=== PATIENT | female | born 1960 | race Caucasian/White ===

== ENCOUNTER 2020-07-02 07:22 | Outpatient (CLI) | payer BC, SELFPAY ==
--- NOTE | ~2020-07-02 | MM_ITS ---
EXAMINATION: MM screening cheryl BI w shira HISTORY: Screening TECHNIQUE: Craniocaudal and mediolateral oblique 3-D tomosynthesis images were obtained and synthetic 2-D images were generated. CAD analysis was submitted and interpreted. COMPARISON: Comparison to multiple prior studies sequentially, with oldest reviewed study dated 03/2015. BREAST PARENCHYMAL COMPOSITION: The breasts are heterogeneously dense, which may obscure small masses . FINDINGS: There is no evidence of suspicious mass, calcification, or architectural distortion to sugg est malignancy in either breast. There has been no suspicious interval change. IMPRESSION: 1. No mammographic evidence of malignancy. 2. Recommend routine screening mammography in one year. 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
== END 2020-07-02 07:23 | disposition home or self-care (01) ==
LOC: ANHIMG 07:28
PROVIDERS: PCP Family Medicine; Visit Provider Obstetrics & Gynecology
DX: Z12.31 Encounter for screening mammogram for malignant neoplasm of breast (principal)
CPT/HCPCS: 77063; 77067

== ENCOUNTER 2021-09-29 08:33 | Outpatient (CLI) | payer OTHER, SELFPAY ==
--- NOTE | ~2021-09-29 | US_ITS ---
EXAMINATION: US right upper quadrant DATE: 09/29/2021 09:38 INDICATION: Right upper quadrant abdominal pain. TECHNIQUE: Multiple grayscale and Doppler ultrasound images of the abdomen were obtained. COMPARISON: Ultrasound 08/21/2011 FINDINGS: The visualized portions of the head and body of the pancreas are normal. The liver is hina l without focal lesion. No liver surface nodularity. There is normal flow in main portal vein. The ga llbladder is normal in size. No gallstones or gallbladder wall thickening. There was no sonographic M urphy sign. The common duct is normal and measures 6 mm. IMPRESSION: 1. Normal right upper quadrant ultrasound. 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
== END 2021-09-29 08:34 | disposition home or self-care (01) ==
LOC: ANHIMG 08:36
PROVIDERS: PCP Emergency Medicine; Visit Provider Emergency Medicine
DX: R10.11 Right upper quadrant pain (principal)
CPT/HCPCS: 76705

== ENCOUNTER 2022-01-02 08:32 | Outpatient (CLI) | payer OTHER, SELFPAY ==
--- NOTE | ~2022-01-02 | CT_ITS ---
EXAMINATION: CT abdomen pelvis wo con DATE: 01/02/2022 08:58 INDICATION: Right lower quadrant pain for 4 months TECHNIQUE: Computed tomography (CT) of the abdomen and pelvis was performed without intravenous contr ast. The dose-length product was 270.09 mGy-cm. Automated exposure control and iterative reconstructi on technique were employed. COMPARISON: Ultrasound dated 09/29/2021. FINDINGS: Lung bases are unremarkable. Heart size normal. No significant pleural or pericardial effus ion. The liver, spleen, pancreas, adrenal glands and kidneys are unremarkable. Gallbladder is present . Appendix contains appendicoliths although there is no significant wall thickening or periappendicea l inflammation. Gallbladder is present. Nonobstructive bowel gas pattern. No abnormal pelvic masses or fluid collecti ons. No significant vascular abnormality. No lymphadenopathy. Mild lumbar spondylosis. Small mixed yecenia cent/sclerotic lesion of the left ilium, nonspecific. There is a small sclerotic lesion of the left a cetabulum as well. IMPRESSION: 1. No acute abdominal abnormality. 2: Small lytic/sclerotic lesions of the left pelvis, most likely benign, although if there is a histo ry of malignancy, consider correlation with bone scan. Reviewed, dictated and finalized at location B. IMPRESSION: 1. No acute abdominal abnormality. 2: Small lytic/sclerotic lesions of the left pelvis, most likely benign, althou gh if there is a history of malignancy, consider correlation with bone scan.
== END 2022-01-02 08:33 | disposition home or self-care (01) ==
PROVIDERS: PCP Emergency Medicine
DX: R10.31 Right lower quadrant pain (principal)
CPT/HCPCS: 74176

== ENCOUNTER 2022-01-12 09:12 | Outpatient (CLI) | payer OTHER, SELFPAY ==
--- NOTE | ~2022-01-12 | MM_ITS ---
EXAMINATION: MM screening cheryl BI w shira HISTORY: Screening TECHNIQUE: Craniocaudal and mediolateral oblique 3-D tomosynthesis images were obtained and synthetic 2-D images were generated. CAD analysis was submitted and interpreted. COMPARISON: Comparison to multiple prior studies sequentially, with oldest reviewed study dated 08/13. BREAST PARENCHYMAL COMPOSITION: The breasts are heterogenously dense, which may obscure small masses FINDINGS: There is no evidence of suspicious mass, calcification, or architectural distortion to sugg est malignancy in either breast. There has been no suspicious interval change. IMPRESSION: 1. No mammographic evidence of malignancy. 2. Recommend routine screening mammography in one year. BI-RADS Category 1: Negative Reviewed, dictated and finalized at location A.
== END 2022-01-12 09:13 | disposition home or self-care (01) ==
PROVIDERS: PCP Emergency Medicine; Visit Provider Obstetrics & Gynecology
DX: Z12.31 Encounter for screening mammogram for malignant neoplasm of breast (principal)
CPT/HCPCS: 77063; 77067

== ENCOUNTER 2022-01-25 10:26 | Emergency (ER) | payer OTHER, SELFPAY ==
--- NOTE | ~2022-01-25 | XR_ITS ---
XR wrist LT min 3V 01/25/2022 11:18 Indication: Left wrist pain after fall Procedure: 4 views left wrist Comparison: /Oh 02/2009 Findings: There is a nondisplaced radial styloid fracture. There is mild polyarticular osteoarthritis . Mild soft tissue swelling adjacent to the radial styloid. Scaphoid appears to be intact. No other f racture is identified. Osteopenia. Impression: 1: Nondisplaced radial styloid fracture. Reviewed, dictated and finalized at location A. Impression: 1: Nondisplaced radial styloid fracture.
--- NOTE | ~2022-01-25 | XR_ITS ---
XR facial bones min 3V 01/25/2022 11:17 Indication: Left-sided facial pain Procedure: 5 views of the facial bones Comparison: No prior studies for comparison. Findings: No facial fracture is identified. Orbits are symmetric. Paranasal sinuses are pneumatized. Mastoids are pneumatized. No mandibular fracture is seen. Nasal bone intact. No air-fluid levels in t he sinuses. Impression: 1: No acute facial fracture. If there is continuing concern for nondisplaced fracture, correlation wi th CT recommended. Reviewed, dictated and finalized at location A. Impression: 1: No acute facial fracture. If there is continuing concern for nondisplaced fr acture, correlation with CT recommended.
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
[2022-01-25 10:37] VITALS: BP 145/74; PULSE 67; RESP 16; TEMP 36.2; O2SAT 100
== END 2022-01-25 12:14 | disposition home or self-care (01) ==
PROVIDERS: Emergency Provider Nurse Practitioner Family; PCP Emergency Medicine
DX: S52.515A Nondisplaced fracture of left radial styloid process, initial encounter for closed fracture (principal); V18.0XXA Pedal cycle driver injured in noncollision transport accident in nontraffic accident, initial encounter; S01.511A Laceration without foreign body of lip, initial encounter; E78.5 Hyperlipidemia, unspecified; Z85.9 Personal history of malignant neoplasm, unspecified
CPT/HCPCS: 12011; 29125; 70150; 73110; 99214; G0463

== ENCOUNTER 2023-04-30 01:54 | Day surgery (SDC) | payer OTHER, SELFPAY ==
[2023-04-23 10:02] VITALS: BMI 23.6
--- NOTE | 2023-04-23 10:03 | PC.NURSE ---
Report to the Outpatient Waiting Room, entrance under the green pavilion located off [facility], at time _0600_ on date _[id number]_. Planned Procedure Time: _0730_. Time changes happen often and if your time is changed the preop area will call you the afternoon before. - You and your visitor will be asked to self-screen and do not enter if you have any COVID symptoms. - A mask is optional within the hospital at this time. Patients may have clear liquids (water, carbonated beverages, clear teas, apple juice) until 3 hours prior to surgery with a maximum of 20 ounces. - No food from midnight until time of surgery Take the following medications with a SIP of water the morning of surgery: ___Levothyroxine DO NOT STOP ANY OF YOUR OTHER PRESCRIPTION MEDICATIONS PRIOR TO SURGERY ?EXCEPT THE FOLLOWING Medications to discontinue per physician None Date to take last dose Please no make-up, nail irish, hairspray, perfume, deodorant, or body powder the day of surgery. No jewelry (including any body piercings) or valuables the day of surgery, leave them at home. Please take a shower or bath the night before, or the morning of, surgery with an antibacterial soap. Wear comfortable, loose fitting clothing. - Jewelry must be removed prior to entering the operating room. Rings and piercings that are not removed may be cut off. - The hospital will not accept responsibility for valuables. - Please leave all valuables, including medications, at home the day of surgery. If you are going home after surgery, a licensed drivers' cash clerk must drive you home. - NO public transportation without another adult if you receive anesthesia. - We recommend that an adult stay with you for 24 hours following discharge. - We also recommend that you do not drive, make important decision, drink alcoholic beverages, or take any drugs that were not prescribed by your health care provider for at least 24 hours after your discharge time. Follow any additional instructions given to you from your surgeon. If you or anyone in your household have experienced Covid symptoms in the past week, please notify your surgeon or the nurse liaison at the phone number below for possible testing. Telephone instructions given to __Patient___and asked if any additional questions and then verbalized understanding. Patient advised to call surgeon office or pre surgery nurse liaison [phone] if any additional questions.
[2023-04-30 06:12] VITALS: BP 132/75; PULSE 66; RESP 16; TEMP 36.7; O2SAT 100; BMI 24.3
--- NOTE | 2023-04-30 06:41 | WPDANESEPPF ---
Anes - Initial Pre Proc Eval Procedure: Operation Date: 04/30/23 07:30 Proposed Procedures p Excisional Biopsy Left Upper Extremity Subcutaneous Mass - Deborah Rodrigues MD Date/Time: 04/30/23 06:41 Surgeon: Deborah Rodrigues MD Pre Op Diagnosis: Lt Upper Extremity Sub Q Mass Patient Data Age: 62 Gender: F Height: 1.55 m Weight: 56.8 kg Allergies Allergy/AdvReac Type Severity Reaction Status Date / Time codeine Allergy Severe Vomiting Verified 04/23/23 09:53 morphine Allergy Severe Vomiting Verified 04/23/23 09:53 Home Medications Medication Instructions Recorded Confirmed Type pantoprazole 40 mg tablet,delayed 40 mg PO BID 10/18/21 04/23/23 History release (Protonix) zolpidem 12.5 mg tablet,extended 12.5 mg PO HS 01/25/22 04/23/23 History release,multiphase (Ambien CR) fluticasone propionate 50 1 spray intranasal DAILY #16 grams 07/03/22 04/23/23 Rx mcg/actuation nasal spray,suspension (Flonase Allergy Relief) rosuvastatin 10 mg tablet See Rx Instructions .Route 10/31/22 04/23/23 Rx .COMPLEX #45 tabs levothyroxine 50 mcg tablet See Rx Instructions .Route 04/04/23 04/23/23 Rx .COMPLEX #90 tabs Patient hx anesthesia problems: none Family hx anesthesia problems: none Results Review: All pre-operative results and documents have been reviewed as part of the pre-operative evaluation. [facility] Past Medical History Medical History Cancer Closed fracture of radial styloid Dyslipidemia GERD without esophagitis History of malignant neoplasm of parotid gland History of sinus problem HLD (hyperlipidemia) IBS (irritable bowel syndrome) Lump of skin of left upper extremity SK (seborrheic keratosis) Skin neoplasm Surgical History Surgical History H/O neck surgery (~2009) History of cervical spinal surgery History of shoulder surgery (~2014) Family History Family History Father Family history of cardiovascular disease Cancer Hypertension Heart disease Mother Family history of malignant neoplasm Cancer Grandparent Cancer Diabetes mellitus Hypertension Cerebrovascular accident Grandparent Diabetes mellitus Hypertension Heart disease Other HLD (hyperlipidemia) Social History Social History Social History: Patient drinks 3-5 cups of caffeine daily. Smoking status: Never smoker Alcohol intake: never Substance use: never Lack of Transportation: No Lack of Food: Never True Current Housing: I Have Housing Concerned About Future Housing: No Difficulty Paying Gas/Electric Bills: No Difficulty Paying for Meds: No Currently Unemployed: No Education: Trade/Vocational Certificate Difficulty w/ Childcare or Family Care: No Living arrangements: with family Occupation/Education: retired Gender identity (if verbalized by the patient): Female Sexual Orientation (if Verbalized by the Patient): Straight or Heterosexual Spiritual care concerns: No Anes - Eval Final PreProcedure Day of Procedure 04/30/23 06:41 Patient weight: normal Heart: regular rate and rhythm Lungs: clear to auscultation Airway: Mallampati scale class II Neurological: alert and oriented Last oral intake: >/= 8 hours ASA classification: II Emergent: no Anesthetic plan: proceed Anesthesia type and monitoring: general GIVS and standard monitoring Results Review: All pre-operative results and documents have been reviewed as part of the pre-operative evaluation. Informed Consent: The patient's anesthetic plan and its attendant risks and benefits were discussed with the patient/family/POA. Questions were solicited and answers provided to the satisfaction of the patient/family/POA.
[2023-04-30] MEDS: LACTATED RINGERS 1,000 ML 30 ML IV CONT (06:57)
--- NOTE | 2023-04-30 07:21 | WPDHPUPDATE1 ---
History and Physical Update Update Date/Time: 04/30/23 07:21 History and Physical has been reviewed, including an updated exam of the patient. There are NO changes in the patient's condition. Risks, benefits, and alternatives have been discussed and questions answered. Patient agrees to proceed with procedure.
--- NOTE | 2023-04-30 07:22 | PM.IMHP ---
H&P: HPI History of Present Illness Date/Time: 04/30/23 07:22 Chief Complaint: L forearm mass Narrative: Ms. Bui presents to the office for evaluation of a left forearm mass.? Has been present for at least five years.? Occasional changes change in size, but no history of infection or other overlying skin changes.? Mild tenderness to deep pressure or when it's bumped. Review of Systems Review of Systems: All systems reviewed & are unremarkable except as noted in HPI and below PMFSH Past Medical History Medical History Cancer Closed fracture of radial styloid Dyslipidemia GERD without esophagitis History of malignant neoplasm of parotid gland History of sinus problem HLD (hyperlipidemia) IBS (irritable bowel syndrome) Lump of skin of left upper extremity SK (seborrheic keratosis) Skin neoplasm Surgical History Surgical History H/O neck surgery (~2009) History of cervical spinal surgery History of shoulder surgery (~2014) Family History Family History Father Family history of cardiovascular disease Cancer Hypertension Heart disease Mother Family history of malignant neoplasm Cancer Grandparent Cancer Diabetes mellitus Hypertension Cerebrovascular accident Grandparent Diabetes mellitus Hypertension Heart disease Other HLD (hyperlipidemia) Social History Social History Social History: Patient drinks 3-5 cups of caffeine daily. Smoking status: Never smoker Alcohol intake: never Substance use: never Lack of Transportation: No Lack of Food: Never True Current Housing: I Have Housing Concerned About Future Housing: No Difficulty Paying Gas/Electric Bills: No Difficulty Paying for Meds: No Currently Unemployed: No Education: Trade/Vocational Certificate Difficulty w/ Childcare or Family Care: No Living arrangements: with family Occupation/Education: retired Gender identity (if verbalized by the patient): Female Sexual Orientation (if Verbalized by the Patient): Straight or Heterosexual Spiritual care concerns: No Meds Home Medications and Allergies Home Medications Medication Instructions Recorded Confirmed Type pantoprazole 40 mg tablet,delayed 40 mg PO BID 10/18/21 04/23/23 History release (Protonix) zolpidem 12.5 mg tablet,extended 12.5 mg PO HS 01/25/22 04/23/23 History release,multiphase (Ambien CR) fluticasone propionate 50 1 spray intranasal DAILY #16 grams 07/03/22 04/23/23 Rx mcg/actuation nasal spray,suspension (Flonase Allergy Relief) rosuvastatin 10 mg tablet See Rx Instructions .Route 10/31/22 04/23/23 Rx .COMPLEX #45 tabs levothyroxine 50 mcg tablet See Rx Instructions .Route 04/04/23 04/30/23 Rx .COMPLEX #90 tabs Allergies Allergy/AdvReac Type Severity Reaction Status Date / Time codeine Allergy Severe Vomiting Verified 04/30/23 07:10 morphine Allergy Severe Vomiting Verified 04/30/23 07:10 Vital Signs Vital Signs - 24 hr 04/30/23 06:12 Temperature 36.7 C Pulse Rate 66 Respiratory Rate 16 Blood Pressure 132/75 Pulse Oximetry 100 Oxygen Delivery Room Air Exam Const: General: cooperative, comfortable and no acute distress Resp: Auscultation: clear to auscultation bilaterally Cardio: Rate: regular rate Rhythm: regular rhythm GI: Inspection: normal to inspection Extrem: Other: L forearm sq mass - c/w lipoma 3x3 cm Assessment and Plan Assessment and plan (1) Mass of forearm: Qualifiers: Laterality: left Qualified Code(s): R22.32 - Localized swelling, mass and lump, left upper limb Code(s): R22.30 - Localized swelling, mass and lump, unspecified upper limb Status: Acute Assessment and Plan: will setup for exc biopsy
[2023-04-30] MEDS: ceFAZolin 2 GM/D5W 50 ML 2 GM/50 ML BAG IVPB (07:23)
[2023-04-30] MEDS: BUPIVACAINE/EPINEPHRINE 0.5% 10 ML VIAL 50 ML INFILTRATE (07:41)
--- NOTE | 2023-04-30 07:52 | P.OP_ITS ---
Procedure Note - Detailed Date of Procedure 04/30/23 Pre-op Diagnosis left forearm subcutaneous mass Post-op Diagnosis Same Procedure Performed excisional biopsy left forearm subcutaneous measuring approximately 3 x 3 cm Surgeon Deborah Rodrigues MD Anesthesia MAC and Local Indications 62-year-old female presenting to the office with a left forearm subcutaneous mass. The patient reports the mass has been present for years and has been slowly enlarging becoming more symptomatic over that time. Findings 3x3 cm sq mass most c/w lipoma Description of Procedure The patient was then placed the supine position. After adequate induction anesthesia, the patient was prepped draped the normal sterile fashion. A time- out was then done to verify the patient's identity as well as the procedure being performed. I began localizing the area above and this in the left forearm. It was noted to measure 3 x 3 cm. I then made an incision over the mass with a 15 blade scalpel. This incision was carried down through the dermis into the subcutaneous tissue. In the subcutaneous tissue, I encountered a well- circumscribed mass most consistent with lipoma. I was able to excise this mass in full. It will now be sent to pathology for further review. I then copiously irrigated the cavity and no other pathology was noted. Hemostasis was noted within the cavity. The subcutaneous tissue was then closed with 3-0 Vicryl suture. The dermis was closed with 4-0 Monocryl subcuticular suture. Dermabond was then placed on the wound. The patient tolerated the procedure well and was alert and awake in the operating room postoperatively. She will be transferred to the recovery room in stable condition. Estimated Blood Loss 5 Drains No Packing No Pathology Yes Complications No immediate complications Condition Stable Disposition PACU [facility] Billing Surgery - Charge Forward: Surgery Billing
[2023-04-30 07:58] VITALS: BP 107/52; PULSE 80; RESP 14; O2SAT 100
[2023-04-30 08:20] VITALS: BP 98/55; PULSE 78; RESP 20
[2023-04-30 08:50] VITALS: BP 115/68; PULSE 79; RESP 20
== END 2023-04-30 09:10 | disposition home or self-care (01) ==
PROVIDERS: PCP Emergency Medicine; Visit Provider Surgery
PROC: (CPT 25071; principal; 2023-04-30 07:30)
DX: D17.22 Benign lipomatous neoplasm of skin and subcutaneous tissue of left arm (principal); E78.5 Hyperlipidemia, unspecified; K21.9 Gastro-esophageal reflux disease without esophagitis
CPT/HCPCS: 25071; 88304; J0690; J2250; J2704; J3010; J7120

== ENCOUNTER 2023-08-21 08:34 | Outpatient (CLI) | payer MEDICARE, SELFPAY ==
--- NOTE | ~2023-08-21 | MM_ITS ---
EXAMINATION: MM screening [facility] BI w shira HISTORY: Screening mammogram TECHNIQUE: Craniocaudal and mediolateral oblique 3-D tomosynthesis images were obtained and synthetic 2-D images were generated. CAD analysis was submitted and interpreted. COMPARISON: 01/12/2022, 07/02/2020, 03/18/2019 BREAST PARENCHYMAL COMPOSITION: The breasts are heterogeneously dense, which may obscure small masses . FINDINGS: No suspicious mass, calcification, or architectural distortion are identified in either radha ast to suggest malignancy. There has been no suspicious interval change. IMPRESSION: 1. No mammographic evidence of malignancy. 2. Recommend routine screening mammography in one year. BI-RADS Category 1: Negative Reviewed, dictated and finalized at location A. 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
== END 2023-08-21 08:35 | disposition home or self-care (01) ==
PROVIDERS: PCP Emergency Medicine; Visit Provider Emergency Medicine
DX: Z12.31 Encounter for screening mammogram for malignant neoplasm of breast (principal)
CPT/HCPCS: 77063; 77067

== ENCOUNTER 2024-05-06 15:20 | Emergency (ER) | payer MEDICARE, SELFPAY ==
--- NOTE | ~2024-05-06 | XR_ITS ---
EXAMINATION: XR foot RT min 3V DATE: 05/06/2024 15:41 INDICATION: Right foot injury and pain. TECHNIQUE: 4 views of right foot were obtained. COMPARISON: None. FINDINGS: There is mild valgus. No fracture. There is mild osteoarthritis of talonavicular joint and some of the interphalangeal joints. IMPRESSION: 1. Mild polyarticular osteoarthritis. 2. Mild hallux valgus. Reviewed, dictated and finalized at location A.
--- NOTE | 2024-05-06 15:21 | ED.LOWEXIN ---
HPI - Extremity Injury (Lower) General Chief Complaint: Extremity Injury, Lower Stated Complaint: RT Ankle Pain Time Seen by Provider: 05/06/24 15:21 Source: patient Mode of arrival: ambulatory Limitations: no limitations History of Present Illness HPI Narrative: Margo is a 63-year-old female patient presenting to the clinic today with complaints of right foot pain after injuring it this morning. She reports she was stepping down her 2 steps going from the house to the garage and missed the last step and inverted her right foot and felt a pop. She is having pain over the 4th and 5th metatarsals and over the proximal lateral foot. No obvious bruising or swelling noted. Related Data Home Medications Medication Instructions Recorded Confirmed pantoprazole 40 mg tablet,delayed 40 mg PO BID 10/18/21 05/06/24 release (Protonix) zolpidem 12.5 mg tablet,extended 12.5 mg PO HS 01/25/22 05/06/24 release,multiphase (Ambien CR) latanoprost 0.005 % eye drops 1 drp EACH EYE DAILY 03/26/24 05/06/24 celecoxib 200 mg capsule 200 mg PO DAILY 05/06/24 05/06/24 Allergies Allergy/AdvReac Type Severity Reaction Status Date / Time codeine AdvReac Intermediate Nausea and Verified 05/06/24 15:22 Vomiting morphine AdvReac Intermediate Nausea and Verified 05/06/24 15:22 Vomiting Review of Systems Review of Systems: Pertinent positives per HPI. Patient denies any fever, chills, rash, headache, visual changes, dizziness, cough, runny nose, sore throat, shortness of breath, chest pain, palpitations, nausea, vomiting, diarrhea, constipation, abdominal pain, or any urinary issues. [facility] Past Medical History Medical History Cancer Cerumen debris on tympanic membrane of right ear Closed fracture of radial styloid Dyslipidemia Encounter for surgical aftercare following surgery on the skin and subcutaneous tissue GERD without esophagitis History of malignant neoplasm of parotid gland History of sinus problem HLD (hyperlipidemia) IBS (irritable bowel syndrome) Lipoma of left upper extremity Lump of skin of left upper extremity Mass of forearm SK (seborrheic keratosis) Skin neoplasm Surgical History Surgical History H/O neck surgery (~2009) History of cervical spinal surgery History of shoulder surgery (~2014) Family History Family History Father Family history of cardiovascular disease Cancer Hypertension Heart disease Mother Family history of malignant neoplasm Cancer Grandparent Cancer Diabetes mellitus Hypertension Cerebrovascular accident Grandparent Diabetes mellitus Hypertension Heart disease Other HLD (hyperlipidemia) Social History Social History Social History: Patient drinks 3-5 cups of caffeine daily. Smoking status: Never smoker Alcohol intake: never Substance use: never Current Housing: Decline to Answer Concerned About Future Housing: Decline to Answer Difficulty Paying Gas/Electric Bills: Decline to Answer Difficulty Paying for Meds: Decline to Answer Currently Unemployed: Decline to Answer Education: Decline to Answer Difficulty w/ Childcare or Family Care: Decline to Answer Living arrangements: with family Occupation/Education: retired Gender identity (if verbalized by the patient): Female Sexual Orientation (if Verbalized by the Patient): Straight or Heterosexual Spiritual care concerns: No Comments At the time of my signature, I reviewed and agree with the nursing past medical, surgical, social, and family history. There is no relevant family history pertinent to the patient complaint. Exam Narrative: General: Well-developed, well nourished, in no apparent distress Head: Normocephalic, atraumatic. Cardi
[2024-05-06 15:27] VITALS: BP 151/81; PULSE 61; RESP 20; TEMP 36.5; O2SAT 99
[2024-05-06 15:50] VITALS: BP 142/80; PULSE 62
== END 2024-05-06 15:51 | disposition home or self-care (01) ==
PROVIDERS: Emergency Provider Nurse Practitioner Family; PCP Emergency Medicine
DX: S93.601A Unspecified sprain of right foot, initial encounter (principal); X50.9XXA Other and unspecified overexertion or strenuous movements or postures, initial encounter; M19.071 Primary osteoarthritis, right ankle and foot; E78.5 Hyperlipidemia, unspecified; K21.9 Gastro-esophageal reflux disease without esophagitis; Z85.858 Personal history of malignant neoplasm of other endocrine glands; Z85.828 Personal history of other malignant neoplasm of skin
CPT/HCPCS: 73630; 99213; G0463

== ENCOUNTER 2024-05-30 08:20 | Outpatient (CLI) | payer MEDICARE, SELFPAY ==
--- NOTE | 2024-05-30 08:24 | EST_ITS ---
Patient Info Name: Marija Bui Age: 63 years : 1960 Gender: Female Ht: 61 in Wt: 133 lbs BSA: 1.62 m2 HR: 73 bpm BP: 154 / 94 mmHg Exam Date: 05/30/2024 8:42 AM Exam Location: Echo Lab Patient Status: Outpatient Admit Date: 05/30/2024 Staff Ordering Physician: Basim Huggins MD Attending Provider: Basim Huggins MD Exercise Technologist: Vivian Cortez [facility] Exercise Physician: Jay Alaniz DO Exam Type: CA stress test treadmill Study Info A treadmill exercise stress test was performed. Summary 1. 1. Negative Khadar exercise stress test for ischemic ST changes by ECG criteria. 2. 2. Reduced functional capacity, achieving 7 METs of workload. 3. 3. Baseline hypertension with hypertensive response to exercise. 4. 4. Appropriate HR response to exercise. 5. 5. Appropriate HR recovery at 1 minute post exercise. 6. 6. No imaging with stress testing. 7. 7. Patient informed of the above results. Protocol: Khadar Stress ECG Details Stage: REST Duration (min): 6 min : 5 sec Speed (mph): 0.0 Grade (%): 0 HR (bpm): 74 SBP (mmHg): 154 DBP (mmHg): 94 METS: --- Stage: REST Duration (min): 8 min : 44 sec Speed (mph): 0.0 Grade (%): 0 HR (bpm): 79 SBP (mmHg): 154 DBP (mmHg): 94 METS: --- Stage: STAGE 1 Duration (min): 1 min : 0 sec Speed (mph): 1.7 Grade (%): 10 HR (bpm): 105 SBP (mmHg): 154 DBP (mmHg): 94 METS: --- Stage: STAGE 1 Duration (min): 2 min : 0 sec Speed (mph): 1.7 Grade (%): 10 HR (bpm): 126 SBP (mmHg): 154 DBP (mmHg): 94 METS: --- Stage: STAGE 1 Duration (min): 3 min : 0 sec Speed (mph): 1.7 Grade (%): 10 HR (bpm): 129 SBP (mmHg): 190 DBP (mmHg): 89 METS: --- Stage: STAGE 2 Duration (min): 1 min : 0 sec Speed (mph): 2.5 Grade (%): 12 HR (bpm): 140 SBP (mmHg): 190 DBP (mmHg): 89 METS: --- Stage: STAGE 2 Duration (min): 2 min : 0 sec Speed (mph): 2.5 Grade (%): 12 HR (bpm): 149 SBP (mmHg): 208 DBP (mmHg): 88 METS: --- Stage: STAGE 2 Duration (min): 2 min : 1 sec Speed (mph): 2.5 Grade (%): 12 HR (bpm): 149 SBP (mmHg): 208 DBP (mmHg): 88 METS: --- Stage: RECOVERY Duration (min): 0 min : 59 sec Speed (mph): 0.0 Grade (%): 0 HR (bpm): 114 SBP (mmHg): 208 DBP (mmHg): 88 METS: --- Stage: RECOVERY Duration (min): 1 min : 59 sec Speed (mph): 0.0 Grade (%): 0 HR (bpm): 85 SBP (mmHg): 208 DBP (mmHg): 88 METS: --- Stage: RECOVERY Duration (min): 2 min : 59 sec Speed (mph): 0.0 Grade (%): 0 HR (bpm): 83 SBP (mmHg): 182 DBP (mmHg): 89 METS: --- Stage: RECOVERY Duration (min): 3 min : 4 sec Speed (mph): 0.0 Grade (%): 0 HR (bpm): 81 SBP (mmHg): 182 DBP (mmHg): 89 METS: --- Rest HR: 79 bpm Peak HR: 152 bpm Rest Sys BP: 154 mmHg Peak Sys BP: 208 mmHg Max Pred HR: 155 bpm % Max Pred HR: 98 % Target HR: 132 bpm Max RPP: 31,616 bpm*mmHg Riggs Score: -4 BP Response: Patient exhibited a hypertensive response with stress Termination Reason: Reached target heart rate or workload Cardiac Symptoms: Shortness of breath Max ST Seg Deviation: -1.90 mm Total Time: 5 min : 1 sec Rest Jimenez BP: 94 mmHg Peak Jimenez BP: 88 mmHg Angina Score: None Total METS: 7.1 Resting ECG Sinus rhythm. Stress ECG Borderline ST-T wave in inferior leads. Arrhythmias None. Report Signatures
== END 2024-05-30 08:21 | disposition home or self-care (01) ==
PROVIDERS: PCP Emergency Medicine; Visit Provider Emergency Medicine
DX: R06.09 Other forms of dyspnea (principal); R07.89 Other chest pain
CPT/HCPCS: 93017

== ENCOUNTER 2024-11-27 14:05 | Outpatient (CLI) | payer MEDICARE, SELFPAY ==
--- NOTE | ~2024-11-27 | MM_ITS ---
EXAMINATION: MM screening cheryl BI w shira HISTORY: Screening TECHNIQUE: Craniocaudal and mediolateral oblique 3-D tomosynthesis images were obtained and synthetic 2-D images were generated. CAD analysis was submitted and interpreted. COMPARISON: Comparison to multiple prior studies sequentially, with oldest reviewed study dated 11/08. BREAST PARENCHYMAL COMPOSITION: Not dense: There are scattered areas of fibroglandular density. FINDINGS: There is no evidence of suspicious mass, calcification, or architectural distortion to sugg est malignancy in either breast. There has been no suspicious interval change. IMPRESSION: 1. No mammographic evidence of malignancy. 2. Recommend routine screening mammography in one year. BI-RADS Category 1: Negative Reviewed, dictated and finalized at location A.
--- OUTSIDE RECORDS SUMMARY | 2024-11-27 14:53 | XMS_ITS | Clinical Summary ---
Author Organization [facility] Address [address] [place] [address] Care Team Providers Care Hand Button Splitter Name Role Phone Lennox Selby MD Primary Care Provider [phone] Source Comments [facility],non-owned Affiliates and Associated Physician Practices is amultiple site organization consisting of ambulatory clinics and hospital sitesin [place], [place], [place] and [place]. This disclosure is being madepursuant to the Care Everywhere program and may not contain all information available regarding this patient. Last updated 18.[facility] Allergies Active Allergy Reactions Criticality Noted Date Comments Codeine Nausea and/or Vomiting 09/30/2014 Meperidine Nausea and/or Vomiting 10/02/2014 Morphine Nausea and/or Vomiting 09/30/2014 Oxycodone-Acetaminophen Nausea and/or Vomiting 10/02/2014 Medications * Be aware that medications may not be up to date on this document. Alwaysverify current medications with the patient. fexofenadine (YAZAN) 60 MG tablet Take 60 mg by mouth as needed. Active lovastatin (MEVACOR) 20 MG tablet Take 20 mg by mouth at bedtime. Active ibuprofen (ADVIL) 200 MG capsule Take 200 mg by mouth 4 times daily as needed for Pain. Active acetaminophen (TYLENOL) 325 MG tablet Take 325 mg by mouth every 4 hours as needed for Fever or Pain. Maximum allowable Acetaminophen amount = 4 Grams (4000 mg) / 24 hours. Active zolpidem (AMBIEN) 10 MG tablet Take 10 mg by mouth nightly as needed for Insomnia. Active ondansetron (ZOFRAN) 4 MG tablet Take 1 Tab by mouth every 6 hours as needed for Nausea/Vomiting. 20 Tab 2 5 Active hydrocodone-ib uprofen (VICOPROFEN) 7.5-200 MG TABS Take 1 Tab by mouth every 4 hours as needed. 50 Tab 0 5 Active Active Problems Problem Noted Date Diagnosed Date Neck pain 09/19/2010 Social History Tobacco Use Types Packs/Day Years Used Date Smoking Tobacco: Never Smokeless Tobacco: Never Alcohol Use Standard Drinks/Week Comments No 0 (1 standard drink = 0.6 oz pur e alcohol) Comments No Sex and Gender Information Value Date Recorded Sex Assigned at Not on file Legal Sex Female 9:17 AM EXECUTIVE PERSONAL ASSISTANT Gender Identity Not on file Sexual Orientation Not on file Last Filed Vital Signs Vital Sign Reading Time Taken Comments Blood Pressure 113/72 10/02/2014 12:20 PM EXECUTIVE PERSONAL ASSISTANT Pulse 66 10/02/2014 12:20 PM EXECUTIVE PERSONAL ASSISTANT Temperature 36.1 C (96.9 F) 10/02/2014 11:56 AM EXECUTIVE PERSONAL ASSISTANT Respiratory Rate 16 10/02/2014 12:20 PM EXECUTIVE PERSONAL ASSISTANT Oxygen Saturation 99% 10/02/2014 12:20 PM EXECUTIVE PERSONAL ASSISTANT Inhaled Oxygen Concentration - - Weight 57.2 kg (126 lb) 10/02/2014 7:58 AM EXECUTIVE PERSONAL ASSISTANT Height 154.9 cm (5' 1 ) 10/02/2014 7:58 AM EXECUTIVE PERSONAL ASSISTANT Body Mass Index 23.81 10/02/2014 7:58 AM EXECUTIVE PERSONAL ASSISTANT Plan of Treatment Health Maintenance Due Date Last Done Comments BONE DENSITY TESTING 1960 COLOGUARD (AGES 45-75) - COL ON CA SCREENING 1960 COLON MONITORING 1960 COLONOSCOPY - COLON CA SCREENING 1960 CT COLONOGRAPHY - COLON CA SCREENING 1960 Colorectal Cancer Screening 1960 FIT - COLON CA SCREENING 1960 FLEX SIG - COLON CA SCREENING 1960 MAMMOGRAM 1960 HEPATITIS C SCREENING 06/25/1976 DTAP/TDAP/TD VACCINES (1 - Tdap) 1977 PNEUMOCOCCAL VACCINE 50+ (1 of 1 - PCV) 2008 ZOSTER VACCINE (1 of 2) 2008 COVID-19 VACCINE ( - 2023-2 5 season) 2024 DEPRESSION SCREENING 07/30/2024 INFLUENZA VACCINE (Season Ended) 2025 Respiratory Syncytial Virus (RSV) Vaccine Pt: or over 60 yrs (1 - 1-dose 75+ series) 2033 HEPATITIS B VACCINE Aged Out No longe r eligible based on patient's age to complete this topic HIB VACCINE Aged Out No longer eligi ble based on patient's age to complete this topic HPV VACCINE Aged Out No longer eligi ble based on patient's age to complete this topic MENINGOCOCCAL (Group B) VACC INE SHARED DECISION-MAKING Aged Out No longer eligibl e based on patient's age to complete this topic MENINGOCOCCAL GROUPS A/C/Y/W VACCINE Aged Out No longer eligible b ased on patient's age to complete this topic Medical Devices Implanted Type Area Barrel Lathe Operator Outside Device Identifier Shelf Expiration Date Model / Serial / Lot Anch Sut Swvl Radha Tenod [employer] 7 X 19.1 Implanted:Qty: 1 on 10/02/2014 by Vinicius Braga MD at [facility] Left: Shoulder [employer] 06/29/2016 [id number] / / [id number] Insurance [facility] AET[employer] Care Teams Hand Button Splitter Relationship Specialty Start Date End Date Lennox Selby MD [address] [place] [address] PCP - General Family Medicine 09/30/14
--- OUTSIDE RECORDS SUMMARY | 2024-11-27 14:53 | XMS_ITS ---
Author Organization [facility] Address [address] [place], [place] [id number] Care Team Providers Care Variety Performer Name Role Phone PanfiloBasim caban Primary Care Provider UnavailDESMOND Dupree Unavailable [phone] Allergies No Known Allergies REASON FOR VISIT The patient does not have pain when the foot is immobilized, but she can not be in a CAM boot for long periods of time because it makes one leg longer than the other. The ankle brace helps, but she needs more support Medications Medication SIG (Take, Route, Frequency, Duration) Notes Start Date End Date Status Crestor 5 MG 1 tablet Orally Once a day Active methylPREDNISolone 4 MG as directed Orally one pack 024 Active Ambien Active Pantoprazole Sodium Active Levothyroxine Sodium Active Latanoprost Active Vital Signs Weight 138 lbs 11/17/2024 Weight-kg 62.6 kg 11/17/2024 Encounters Encounter Location Date Provider Diagnosis [facility] [address] [place], [place] [id number] 11/17/2024 DESMOND CUNNINGHAM Sprain of other ligament of right ankle, subsequent encounter S93.491D ; Posterior tibial tendinitis of right lower extremity M76.821 ; Other enthesopathy of right foot and ankle M77.51 ; Peroneal tendinitis, right leg M76.71 and Pain in right foot M79.671 Assessments Encounter Date Diagnosis (ICD Code) Assessment Notes Treatment Notes Treatment Clinical Notes Section Notes 11/17/2024 Sprain of other ligament of right ankle, subsequent encounter (ICD-10 - S93.491D) Order: Iliana ankle brace 11/17/2024 Posterior tibial tendinitis of right lower extremity (ICD-10 - M76.821) 11/17/2024 Other enthesopathy of right foot and ankle (ICD-10 - M77.51) Capsulitis / Bursitis: I discussed anti-inflammatory treatment options and various means of immobilization with the patient. I educated the patient on icing and stretching, supportive shoegear, and the use of orthotic devices and bracing. 11/17/2024 Peroneal tendinitis, right leg (ICD-10 - M76.71) Peroneal Tendonitis: I discussed anti-inflammatory treatment options and various means of immobilization with the patient. I educated the patient on icing and stretching, supportive shoegear, and the use of orthotic devices and bracing. 11/17/2024 Pain in right foot (ICD-10 - M79.671) Plan Of Treatment Treatment Notes Assessment Notes Sprain of other ligament of right ankle, subsequent encounter Order: Iliana ankle brace Other enthesopathy of right foot and ank le Capsulitis / Bursitis: I discussed anti-inflammatory treatment options and various means of immobilization with the patient. I educated the patient on icing and stretching, supportive shoegear, and the use of orthotic devices and bracing. Peroneal tendinitis, right leg Peroneal Tendonitis: I discussed anti-inflammatory treatment options and various means of immobilization with the patient. I educated the patient on icing and stretching, supportive shoegear, and the use of orthotic devices and bracing. Next Appt Details Follow Up: prn, Reason: Hermelinda ent will report back on how the Iliana brace is helping after she has worn it a few weeks Progress Notes * Marija CLEMENTS LDOB: [birth year] (64 yo F)Acc No.[id number]:11/17/2024 Patient: Marija BOB Provider: Jessica Cunningham DPM :1960 A ge:64 Y S ex:Female Date:11/17/2024 Address:[address] [place] [address], [address] [place], [place] [id number] Pcp:Basim Huggins Subjective: * Chief Complaints: * 1 . The patient does not have pain when the foot is immobilized, but she can not be in a CAM boot for long periods of time because it makes one leg longer than the other. The ankle brace helps, but she needs more support. * HPI: H PI: Follow Up Visit P celeste presents for follow-up visit for injection in the right ankle. Patient states injection helped her pain for about two weeks, and then pain returned. Patient states some days are better than others. Patient states that she will wear an ankle brace when pain is bad. MA LB. * ROS: G eneral / Constitutional: Patient denies c hills, fever, weakness, night sweats. M usculoskeletal: Patient denies c hildhood foot problems, weakness. P atlorne complains of h eel pain, arch pain, orthotic use. P eripheral Vascular: Patient denies u lceration of feet, cold extremities. ? S kin: Patient denies u lcerations, discoloration. ? N eurologic: Patient denies b alance difficulty, confusion, difficulty speaking, dizziness. * Medical History: T hyroid Disease, ACID REFLUX, GERD, Leg/Feet cramps. * Family History: F ather: hypertension, skin cancer. M other: Cancer. * Medications: T aking Latanoprost , Taking Levothyroxine Sodium , Taking Ambien , Taking Pantoprazole Sodium , Taking Crestor 5 MG Tablet 1 tablet Orally Once a day , Taking methylPREDNISolone 4 MG Tablet Therapy Pack as directed Orally , Notes to Pharmacist: one pack, Medication List reviewed and reconciled with the patient * Allergies: N .K.D.A. Objective: * Vitals: S hoe Size: 6, Wt:138lbs, Wt-k.6 kg. * Examination: C onstitutional: Constitutional T he patient is awake, alert, well developed, well groomed and well nourished. D ermatologic: Skin findings: S kin is warm, dry, supple with no breaks in the skin. V ascular: Dorsalis pedis pulse: 2 /4, bilateral. Posterior tibial pulse: 2 /4, bilateral. Capillary refill: l ess than 3 seconds. Edema: N o edema, bilateral. N eurologic: Gross sensation G ross sensation is intact to light touch.? M usculoskeletal: Muscle Strength M uscle strength is 5/5 in regards to dorsiflexion, plantarflexion, inversion, and eversion in bilateral lower extremities. Pain on palpation l ateral portal of the right sinus tarsi and with ROM of the subtalar joint., peroneal tendons of the right foot.. Ankle Ligaments T here is minimal pain to the a nterior talofibular ligament c alcaneofibular ligament. Assessment: * Assessment: 1. S prain of other ligament of right ankle, subsequent encounter - S93.491D (Primary) ? 2 . P osterior tibial tendinitis of right lower extremity - M76.821 3 .?Other enthesopathy of right foot and ankle - M77.51 4 . P eroneal tendinitis, right leg - M76.71 5 . P ain in right foot - M79.671 Plan: * Treatment: 2. O ther enthesopathy of right foot and ankle Notes: Capsulitis / Bursitis: I discussed anti-inflammatory treatment options and various means of immobilization with the patient. I educated the patient on icing and stretching, supportive shoegear, and the use of orthotic devices and bracing. 3. P eroneal tendinitis, right leg Notes: Peroneal Tendonitis: I discussed anti-inflammatory treatment options and various means of immobilization with the patient. I educated the patient on icing and stretching, supportive shoegear, and the use of orthotic devices and bracing. * Immunizations: Immunization record has been reviewed and updated. * Follow Up: p rn (Reason: Patient will report back on how the Iliana brace is helping after she has worn it a few weeks) * Billing Information: * Visit Code: 28185 Office Visit, Est Pt., Level 3. * Procedure Codes: * Electronic signature of DESMOND CUNNINGHAM DPM on 11/27/2024 at 02:53 PM CDT Sign off status: Pending * Provider: Jessica Cunningham DPM Date: 0 11/17/2024 Generated for Gayle carlson/Pegyg/Dawson on: 0 11/27/2024 02:53 PM CDT History and Physical Notes * HPI (History of Present Illness) Category Sub-Category Detail Notes Category Not es HPI Follow Up Visit Patient presents for follow-up visit for injection in the right ankle. Patient states injection helped her pain for about two weeks, and then pain returned. Patient states some days are better than others. Patient states that she will wear an ankle brace when pain is bad. ERLIN LB Examination Category Sub-Category Detail Notes Category Not es Dermatologic Skin findings: Skin is warm, dr y, supple with no breaks in the skin Neurologic Gross sensation Gross sensation is intact to light touch Vascular Dorsalis pedis pulse: 2/4, bilateral Edema: No edema, bilateral Capillary refill: less than 3 seconds Posterior tibial pulse: 2/4, bilateral Musculoskeletal Muscle Strength Muscle strength is 5/5 in regards to dorsiflexion, plantarflexion, inversion, and eversion in bilateral lower extremities Pain on palpation lateral portal of th e right sinus tarsi and with ROM of the subtalar joint., peroneal tendons of the right foot. Ankle Ligaments There is minimal velma n to the anterior talofibular ligament calcaneofibular ligament Constitutional Constitutional The patient is a wake, alert, well developed, well groomed and well nourished
--- OUTSIDE RECORDS SUMMARY | 2024-11-27 14:54 | XMS_ITS | Patient Health Record ---
Author Organization [facility] Address [address] [place], [place] [id number] Care Team Providers Care Wood Buffer Name Role Phone Basim Huggins Primary Care Provider UnavailDESMOND Dupree Unavailable [phone] Allergies No Known Allergies Reason For Referral No Information Medications Medication SIG (Take, Route, Frequency, Duration) Notes Start Date End Date Status Crestor 5 MG 1 tablet Orally Once a day Active methylPREDNISolone 4 MG as directed Orally one pack 024 Active Ambien Active Pantoprazole Sodium Active Latanoprost Active Levothyroxine Sodium Active Vital Signs Weight-kg 62.6 kg 11/17/2024 Weight 138 lbs 11/17/2024 Encounters Encounter Location Date Provider Diagnosis [facility] [place] Dasia [place], [place] [id number] 03/24/2024 DESMOND SNVALENTIN Tarsal tunnel syndrome, right lower limb G57.51 ; Posterior tibial tendinitis, right leg M76.821 ; Plantar fascial fibromatosis M72.2 and Pain in right foot M79.671 [facility] [place] [id number] 04/28/2024 DESMOND SNVALENTIN Tarsal tunnel syndrome, right lower limb G57.51 ; Posterior tibial tendinitis, right leg M76.821 ; Pain in right foot M79.671 and Plantar fascial fibromatosis M72.2 [facility] [place] [id number] 06/02/2024 DESMOND SNOOK Tarsal tunnel syndrome, right lower limb G57.51 ; Posterior tibial tendinitis, right leg M76.821 ; Pain in right foot M79.671 ; Plantar fascial fibromatosis M72.2 and Sprain of other ligament of right ankle, initial encounter S93.491A [facility] [place] [address] [address] [place] [id number] 07/14/2024 DESMOND SNOOK Sprain of other ligament of right ankle, subsequent encounter S93.491D ; Posterior tibial tendinitis, right leg M76.821 ; Peroneal tendinitis, right leg M76.71 and Achilles tendinitis, right leg M76.61 [facility] [place] [address] [address] [place] [id number] 11/17/2024 DESMOND SNOOK Sprain of other ligament of right ankle, subsequent encounter S93.491D ; Posterior tibial tendinitis of right lower extremity M76.821 ; Other enthesopathy of right foot and ankle M77.51 ; Peroneal tendinitis, right leg M76.71 and Pain in right foot M79.671 [facility] [place] [address] [address] [place] [id number] 03/03/2024 DESMOND SNOOK Posterior tibial tendinitis, right leg M76.821 ; Plantar fascial fibromatosis M72.2 and Pain in right foot M79.671 [facility] [place] [address] [address] [place] [id number] 04/07/2024 DESMOND SNOOK Tarsal tunnel syndrome, right lower limb G57.51 ; Posterior tibial tendinitis, right leg M76.821 and Pain in right foot M79.671 [facility] [place] [address] [address] [place] [id number] 08/11/2024 DESMOND SNOOK Posterior tibial tendinitis, right leg M76.821 ; Sprain of other ligament of right ankle, subsequent encounter S93.491D ; Peroneal tendinitis, right leg M76.71 and Achilles tendinitis, right leg M76.61 [facility] [place] [facility] JASMINE [place], [place] [id number] 09/15/2024 DESMONDKENZIE CUNNINGHAM Sprain of other ligament of right ankle, subsequent encounter S93.491D ; Other enthesopathy of right foot and ankle M77.51 ; Peroneal tendinitis, right leg M76.71 and Pain in right foot M79.671 [facility] [address] [facility] [address] [place], [place] [id number] 06/03/2024 DESMOND CUNNINGHAM Assessments Encounter Date Diagnosis (ICD Code) Assessment Notes Treatment Notes Treatment Clinical Notes Section Notes 03/03/2024 Plantar fascial fibromatosis (ICD-10 - M72.2) Plantar Fascitis: I discussed anti-inflammatory treatment options and various means of pronation control with the patient. I educated the patient on icing and stretching, supportive shoegear, and the use of orthotic devices. Kenalog Injection: Following skin prep, a total of 3 ccs of a 1-1-1 mix of 0.5% marcaine plain, 1% lidocaine plain, and Kenalog was injected to the right heel 03/03/2024 Posterior tibial tendinitis, right leg (ICD-10 - M76.821) Posterior Tibialis Tendon Dysfunction: I discussed anti-inflammatory treatment options and various means of immobilization with the patient. I educated the patient on icing and stretching, supportive shoegear, and the use of orthotic devices and bracing. Orthotic Continue: Advised patient to continue to wear orthotic devices. 03/24/2024 Tarsal tunnel syndrome, right lower limb (ICD-10 - G57.51) Tarsal Tunnel Syndrome: I discussed anti-inflammatory treatment options and various means of immobilization with the patient. I educated the patient on icing and stretching, supportive shoegear, and the use of orthotic devices and bracing. 03/24/2024 Posterior tibial tendinitis, right leg (ICD-10 - M76.821) Posterior Tibialis Tendon Dysfunction: I discussed anti-inflammatory treatment options and various means of immobilization with the patient. I educated the patient on icing and stretching, supportive shoegear, and the use of orthotic devices and bracing. 04/07/2024 Tarsal tunnel syndrome, right lower limb (ICD-10 - G57.51) Tarsal Tunnel Syndrome: I discussed anti-inflammatory treatment options and various means of immobilization with the patient. I educated the patient on icing and stretching, supportive shoegear, and the use of orthotic devices and bracing. Kenalog Injection: Following skin prep, a total of 3 ccs of a 1-1-1 mix of 0.5% marcaine plain, 1% lidocaine plain, and Kenalog was injected to the right tarsal tunnel 04/07/2024 Posterior tibial tendinitis, right leg (ICD-10 - M76.821) Posterior Tibialis Tendon Dysfunction: I discussed anti-inflammatory treatment options and various means of immobilization with the patient. I educated the patient on icing and stretching, supportive shoegear, and the use of orthotic devices and bracing. Continue supportive shoes and arch support 04/28/2024 Tarsal tunnel syndrome, right lower limb (ICD-10 - G57.51) Tarsal Tunnel Syndrome: I discussed anti-inflammatory treatment options and various means of immobilization with the patient. I educated the patient on icing and stretching, supportive shoegear, and the use of orthotic devices and bracing. 04/28/2024 Posterior tibial tendinitis, right leg (ICD-10 - M76.821) Posterior Tibialis Tendon Dysfunction: I discussed anti-inflammatory treatment options and various means of immobilization with the patient. I educated the patient on icing and stretching, supportive shoegear, and the use of orthotic devices and bracing. Continue supportive shoes and arch support 06/02/2024 Tarsal tunnel syndrome, right lower limb (ICD-10 - G57.51) Tarsal Tunnel Syndrome: I discussed anti-inflammatory treatment options and various means of immobilization with the patient. I educated the patient on icing and stretching, supportive shoegear, and the use of orthotic devices and bracing. 06/02/2024 Posterior tibial tendinitis, right leg (ICD-10 - M76.821) Posterior Tibialis Tendon Dysfunction: I discussed anti-inflammatory treatment options and various means of immobilization with the patient. I educated the patient on icing and stretching, supportive shoegear, and the use of orthotic devices and bracing. Continue supportive shoes and arch support 07/14/2024 Posterior tibial tendinitis, right leg (ICD-10 - M76.821) Posterior Tibialis Tendon Dysfunction: I discussed anti-inflammatory treatment options and various means of immobilization with the patient. I educated the patient on icing and stretching, supportive shoegear, and the use of orthotic devices and bracing. 07/14/2024 Sprain of other ligament of right ankle, subsequent encounter (ICD-10 - S93.491D) Ankle Sprain: Discussed the treatment course for ankle sprain. Explained that ankle injuries may take a total of 6-12 weeks for recovery based on the severity of the sprain. Stressed the importance of rest, activity modification, and bracing. TriLock Ankle Brace: A Trilok ankle brace was fitted and dispensed. The patient was instructed in its use. 08/11/2024 Posterior tibial tendinitis, right leg (ICD-10 - M76.821) Posterior Tibialis Tendon Dysfunction: I discussed anti-inflammatory treatment options and various means of immobilization with the patient. I educated the patient on icing and stretching, supportive shoegear, and the use of orthotic devices and bracing. 08/11/2024 Sprain of other ligament of right ankle, subsequent encounter (ICD-10 - S93.491D) Ankle Sprain: Discussed the treatment course for ankle sprain. Explained that ankle injuries may take a total of 6-12 weeks for recovery based on the severity of the sprain. Stressed the importance of rest, activity modification, and bracing. Patient will wear just the gaunlet of the brace. Patient will begin at-home ROM exercises. 09/15/2024 Sprain of other ligament of right ankle, subsequent encounter (ICD-10 - S93.491D) Ankle Sprain: Discussed the treatment course for ankle sprain. Explained that ankle injuries may take a total of 6-12 weeks for recovery based on the severity of the sprain. Stressed the importance of rest, activity modification, and bracing. Patient will wear just the gaunlet of the brace. Patient will begin at-home ROM exercises. 09/15/2024 Other enthesopathy of right foot and ankle (ICD-10 - M77.51) Capsulitis / Bursitis: I discussed anti-inflammatory treatment options and various means of immobilization with the patient. I educated the patient on icing and stretching, supportive shoegear, and the use of orthotic devices and bracing. Sinus Tarsi Syndrome: I discussed anti-inflammatory treatment options and various means of immobilization with the patient. I educated the patient on icing and stretching, supportive shoegear, and the use of orthotic devices and bracing. Kenalog Injection: Following skin prep, a total of 3 ccs of a 1-1-1 mix of 0.5% marcaine plain, 1% lidocaine plain, and Kenalog was injected to the right sinus tarsi joint 11/17/2024 Sprain of other ligament of right ankle, subsequent encounter (ICD-10 - S93.491D) Order: [place] ankle brace 11/17/2024 Posterior tibial tendinitis of right lower extremity (ICD-10 - M76.821) 08/11/2024 Peroneal tendinitis, right leg (ICD-10 - M76.71) Peroneal Tendonitis: I discussed anti-inflammatory treatment options and various means of immobilization with the patient. I educated the patient on icing and stretching, supportive shoegear, and the use of orthotic devices and bracing. Voltaren Gel: Recommend that the patient obtain over the counter topical Voltaren Gel 1%. I educated the patient on its use. 11/17/2024 Other enthesopathy of right foot and ankle (ICD-10 - M77.51) Capsulitis / Bursitis: I discussed anti-inflammatory treatment options and various means of immobilization with the patient. I educated the patient on icing and stretching, supportive shoegear, and the use of orthotic devices and bracing. 09/15/2024 Peroneal tendinitis, right leg (ICD-10 - M76.71) Peroneal Tendonitis: I discussed anti-inflammatory treatment options and various means of immobilization with the patient. I educated the patient on icing and stretching, supportive shoegear, and the use of orthotic devices and bracing. Voltaren Gel: Recommend that the patient obtain over the counter topical Voltaren Gel 1%. I educated the patient on its use. 07/14/2024 Peroneal tendinitis, right leg (ICD-10 - M76.71) Peroneal Tendonitis: I discussed anti-inflammatory treatment options and various means of immobilization with the patient. I educated the patient on icing and stretching, supportive shoegear, and the use of orthotic devices and bracing. 06/02/2024 Pain in right foot (ICD-10 - M79.671) 04/28/2024 Pain in right foot (ICD-10 - M79.671) 04/07/2024 Pain in right foot (ICD-10 - M79.671) 03/24/2024 Plantar fascial fibromatosis (ICD-10 - M72.2) Plantar Fascitis: I discussed anti-inflammatory treatment options and various means of pronation control with the patient. I educated the patient on icing and stretching, supportive shoegear, and the use of orthotic devices. Continue supportive shoes. Continue orthotics 03/03/2024 Pain in right foot (ICD-10 - M79.671) 03/24/2024 Pain in right foot (ICD-10 - M79.671) 04/28/2024 Plantar fascial fibromatosis (ICD-10 - M72.2) Plantar Fascitis: I discussed anti-inflammatory treatment options and various means of pronation control with the patient. I educated the patient on icing and stretching, supportive shoegear, and the use of orthotic devices. 06/02/2024 Plantar fascial fibromatosis (ICD-10 - M72.2) Plantar Fascitis: I discussed anti-inflammatory treatment options and various means of pronation control with the patient. I educated the patient on icing and stretching, supportive shoegear, and the use of orthotic devices. 07/14/2024 Achilles tendinitis, right leg (ICD-10 - M76.61) ACHILLES TENDONITIS: I discussed anti-inflammatory treatment options and various means of immobilization with the patient. I educated the patient on icing and stretching, supportive shoegear, and the use of orthotic devices, padding, and bracing. 08/11/2024 Achilles tendinitis, right leg (ICD-10 - M76.61) ACHILLES TENDONITIS: I discussed anti-inflammatory treatment options and various means of immobilization with the patient. I educated the patient on icing and stretching, supportive shoegear, and the use of orthotic devices, padding, and bracing. 09/15/2024 Pain in right foot (ICD-10 - M79.671) 11/17/2024 Peroneal tendinitis, right leg (ICD-10 - M76.71) Peroneal Tendonitis: I discussed anti-inflammatory treatment options and various means of immobilization with the patient. I educated the patient on icing and stretching, supportive shoegear, and the use of orthotic devices and bracing. 11/17/2024 Pain in right foot (ICD-10 - M79.671) 06/02/2024 Sprain of other ligament of right ankle, initial encounter (ICD-10 - S93.491A) Ankle Sprain: Discussed the treatment course for ankle sprain. Explained that ankle injuries may take a total of 6-12 weeks for recovery based on the severity of the sprain. Stressed the importance of rest, activity modification, and bracing. 09/15/2024 Other Plan Of Treatment No Information Insurance Providers Payer Name Payer Address Payer Phone Subscriber Number Group Number Insured Name Patient Relationship to Insured Coverage Start Date Coverage End Date [facility] [address] [address] [place] [id number] Marija Clements Self - patient is the insured Medical (General) History Medical History History ICD Code Thyroid Disease ACID REFLUX GERD Leg/Feet cramps
--- OUTSIDE RECORDS SUMMARY | 2024-11-27 14:54 | XMS_ITS ---
Author Organization [facility] Address [address] [place], [place] [id number] Care Team Providers Care Cert Pharmacy Tech Name Role Phone PanfiloBasim caban Primary Care Provider DESMOND Moody Unavailable [phone] Allergies No Known Allergies REASON FOR VISIT The patient reports that the right ankle continues to slowly improve. She is wearing the TriLock and is now on celebrex daily for her other OA Medications Medication SIG (Take, Route, Frequency, Duration) Notes Start Date End Date Status Latanoprost Active Levothyroxine Sodium Active Ambien Active Pantoprazole Sodium Active Crestor 5 MG 1 tablet Orally Once a day Active methylPREDNISolone 4 MG as directed Orally one pack 024 Active Encounters Encounter Location Date Provider Diagnosis [facility] [place] [address] [place], [place] [id number] 08/11/2024 DESMOND CUNNINGHAM Posterior tibial tendinitis, right leg M76.821 ; Sprain of other ligament of right ankle, subsequent encounter S93.491D ; Peroneal tendinitis, right leg M76.71 and Achilles tendinitis, right leg M76.61 Assessments Encounter Date Diagnosis (ICD Code) Assessment Notes Treatment Notes Treatment Clinical Notes Section Notes 08/11/2024 Posterior tibial tendinitis, right leg (ICD-10 [...] brace. Patient will begin at-home ROM exercises. 08/11/2024 Peroneal tendinitis, right leg (ICD-10 - M76.71) Peroneal Tendonitis: I discussed anti-inflammatory treatment options and various means of immobilization with the patient. I educated the patient on icing and stretching, supportive shoegear, and the use of orthotic devices and bracing. Voltaren Gel: Recommend that the patient obtain over the counter topical Voltaren Gel 1%. I educated the patient on its use. 08/11/2024 Achilles tendinitis, right leg (ICD-10 - M76.61) ACHILLES TENDONITIS: I discussed anti-inflammatory treatment options and various means of immobilization with the patient. I educated the patient on icing and stretching, supportive shoegear, and the use of orthotic devices, padding, and bracing. Plan Of Treatment Treatment Notes Assessment Notes Posterior tibial tendinitis, right leg Posterior Tibialis Tendon Dysfunction: I discussed anti-inflammatory treatment options and various means of immobilization with the patient. I educated the patient on icing and stretching, supportive shoegear, and the use of orthotic devices and bracing. Sprain of other ligament of right ankle, subsequent encounter Ankle Sprain: Discussed the treatment course for ankle sprain. Explained that ankle injuries may take a total of 6-12 weeks for recovery based on the severity of the sprain. Stressed the importance of rest, activity modification, and bracing. Patient will wear just the gaunlet of the brace. Patient will begin at-home ROM exercises. Peroneal tendinitis, right leg Peroneal Tendonitis: I discussed anti-inflammatory treatment options and various means of immobilization with the patient. I educated the patient on icing and stretching, supportive shoegear, and the use of orthotic devices and bracing. Voltaren Gel: Recommend that the patient obtain over the counter topical Voltaren Gel 1%. I educated the patient on its use. Achilles tendinitis, right leg ACHILLES TENDONITIS: I discussed anti-inflammatory treatment options and various means of immobilization with the patient. I educated the patient on icing and stretching, supportive shoegear, and the use of orthotic devices, padding, and bracing. Next Appt Details Follow Up: 4 Weeks, Reason: See how ROM exercises and Voltaren gel helped. Anticipate resolution Progress Notes * Marija CLEMENTS LDOB: [birth year] (64 yo F)Acc No.[id number]:08/11/2024 Patient: Marija BOB Provider: Jessica Cunningham DPM :1960 A ge:64 Y S ex:Female Date:08/11/2024 Address:[address] [place] [address] Pcp:Basim Huggins Subjective: * Chief Complaints: * T he patient reports that the right ankle continues to slowly improve. She is wearing the TriLock and is now on celebrex daily for her other OA * HPI: H PI: Follow Up Visit P atient presents for follow-up visit for Trilock, right ankle. Patient states Trilock brace has helped ease her pain in her ankle, but she is still experiencing pain in the lateral side of her foot. MA: LB. * ROS: G eneral / Constitutional: Patient denies c hills, fever, weakness, night sweats. M usculoskeletal: Patient denies c hildhood foot problems, weakness. P atient complains of h eel pain, arch pain, orthotic use. P eripheral Vascular: Patient denies u lceration of feet, cold extremities. ? S kin: Patient denies u lcerations, discoloration. ? N eurologic: Patient denies b alance difficulty, confusion, difficulty speaking, dizziness. * Medical History: * Surgical History: * Hospitalization/Major Diagno stic Procedure: * Family History: F ather: hypertension, skin cancer. M other: Cancer. * Medications: T akingLatanoprost Levothyroxine Sodium Ambien Pantoprazole Sodium Crestor 5 MG Tablet 1 tablet Orally Once a day methylPREDNISolone 4 MG Tablet Therapy Pack as directed Orally , Notes to Pharmacist: one packMedication List reviewed and reconciled with the patientTaking Latanoprost Taking Levothyroxine Sodium Taking Ambien Taking Pantoprazole Sodium Taking Crestor 5 MG Tablet 1 tablet Orally Once a day Taking methylPREDNISolone 4 MG Tablet Therapy Pack as directed Orally , Notes to Pharmacist: one packMedication List reviewed and reconciled with the patient * Allergies: N .K.D.A.no[Allergies Verified] Objective: * Vitals: * Examination: C onstitutional: Constitutional T he [...] in bilateral lower extremities. Pain on palpation N o pain to the navicular tuberosity and distal portion of the tibialis posterior tendon of the right foot. Mild tenderness along the?peroneal tendons of the right foot. Ankle Ligaments T here is minimal pain to the a nterior talofibular ligament c alcaneofibular ligament. Assessment: * Assessment: 1. S prain of other ligament of right ankle, subsequent encounter - S92.483J (Primary) ? 2 . P osterior tibial tendinitis, right leg - M76.821 3 . P eroneal tendinitis, right leg - M76.71 4 . A chilles tendinitis, right leg - M76.61 Plan: * Treatment: 2. P osterior tibial tendinitis, right leg Notes: Posterior Tibialis Tendon Dysfunction: I discussed anti-inflammatory [...] I educated the patient on its use. 4. A chilles tendinitis, right leg Notes: ACHILLES TENDONITIS: I discussed anti-inflammatory treatment options and various means of immobilization with the patient. I educated the patient on icing and stretching, supportive shoegear, and the use of orthotic devices, padding, and bracing. * Procedure Codes: * Follow Up: 4 Weeks (Reason: See how ROM exercises and Voltaren gel helped. Anticipate resolution) * Billing Information: * Visit Code: 46997 Office Visit, Est Pt., Level 3. * Procedure Codes: * ING CEMENTER FRENCH CORD Sign off status: Completed true * Provider: Jessica Cunningham DPM Date: 0 08/11/2024 Generated for Gayle Winslow/Dawson on: 0 11/27/2024 02:53 PM CDT History and Physical Notes * HPI (History of Present Illness) Category Sub-Category Detail Notes Category Not es HPI Follow Up Visit Patient presents for follow-up visit for Trilock, right ankle. Patient states Trilock brace has helped ease her pain in her ankle, but she is still experiencing pain in the lateral side of her foot. MA: LB Examination Category Sub-Category Detail Notes Category [...] in bilateral lower extremities Pain on palpation No pain to the navic ular tuberosity and distal portion of the tibialis posterior tendon of the right foot. Mild tenderness along the peroneal tendons of the right foot Ankle Ligaments There is minimal velma n to the anterior talofibular ligament calcaneofibular ligament Constitutional Constitutional The patient is a wake, alert, well developed, well groomed and well nourished
--- OUTSIDE RECORDS SUMMARY | 2024-11-27 14:54 | XMS_ITS | Clinical Summary ---
Author Organization [facility] Address [address] [place] [id number] Care Team Providers Care Manager Ems Name Role Phone Unavailable Primary Care Provider Unavailabl e Social History Tobacco Use Types Packs/Day Years Used Date Smoking Tobacco: Never Assessed Comments Unknown Sex and Gender Information Value Date Recorded Sex Assigned at Not on file Legal Sex Female 7:18 PM CDT Gender Identity Not on file Sexual Orientation Not on file Plan of Treatment Health Maintenance Due Date Last Done Comments Colorectal Cancer Screening Colonoscopy (10 Years) 1960 Hepatitis C 1976 DTaP, Tdap and Td Vaccines ( 1 - Tdap) 1977 Mammogram Screening 1998 Pneumococcal Vaccine: 50+ Ye ars (1 of 1 - PCV) 2008 Zoster Vaccines (1 of 2) 2008 Dexa Scan (General) 2023 COVID-19 Vaccine ( - 2023-2 5 season) 2024 RSV Immunization or 60+ Years (1 - 1-dose 75+ series) 2033 Meningococcal B Vaccine Aged Out No l onger eligible based on patient's age to complete this topic Meningococcal Vaccine Aged Out No jaime yahaira eligible based on patient's age to complete this topic RSV Immunizations Under 20 Months Aged Out No longer eligible based on patient's age to complete this topic
--- OUTSIDE RECORDS SUMMARY | 2024-11-27 14:54 | XMS_ITS ---
Author Organization [facility] Address [address] [place], [place] [id number] Care Team Providers Care Merchant Miller Name Role Phone Panfiloarsh Basim Primary Care Provider UnavailDESMOND Dupree Unavailable [phone] REASON FOR VISIT The patient reports that her right ankle is doing better, but it can still twinge and ache; especially at the end of the day Medications Medication SIG (Take, Route, Frequency, Duration) Notes Start Date End Date Status Crestor 5 MG 1 tablet Orally Once a day Active methylPREDNISolone 4 MG as directed Orally one pack 024 Active Ambien Active Pantoprazole Sodium Active Levothyroxine Sodium Active Latanoprost Active Encounters Encounter Location Date Provider Diagnosis [facility] [place] [address] [place], [place] [id number] 09/15/2024 DESMOND CUNNINGHAM Sprain of other ligament of right ankle, subsequent encounter S93.491D ; Other enthesopathy of right foot and ankle M77.51 ; Peroneal tendinitis, right leg M76.71 and Pain in right foot M79.671 Assessments Encounter Date Diagnosis (ICD Code) Assessment Notes Treatment Notes Treatment Clinical Notes Section Notes 09/15/2024 Sprain of other ligament of right [...] injected to the right sinus tarsi joint 09/15/2024 Peroneal tendinitis, right leg (ICD-10 - M76.71) Peroneal Tendonitis: I discussed anti-inflammatory treatment options and various means of immobilization with the patient. I educated the patient on icing and stretching, supportive shoegear, and the use of orthotic devices and bracing. Voltaren Gel: Recommend that the patient obtain over the counter topical Voltaren Gel 1%. I educated the patient on its use. 09/15/2024 Pain in right foot (ICD-10 - M79.671) 09/15/2024 Other Plan Of Treatment Treatment Notes Assessment Notes [...] brace. Patient will begin at-home ROM exercises. Other enthesopathy of right foot and ank [...] injected to the right sinus tarsi joint Peroneal tendinitis, right leg Peroneal Tendonitis: I discussed anti-inflammatory treatment options and various means of immobilization with the patient. I educated the patient on icing and stretching, supportive shoegear, and the use of orthotic devices and bracing. Voltaren Gel: Recommend that the patient obtain over the counter topical Voltaren Gel 1%. I educated the patient on its use. Next Appt Details Follow Up: 4 Weeks, Reason: Right ankle check. See how injection helped. Progress Notes * Marija CLEMENTS LDOB: [birth year] (64 yo F)Acc No.[id number]:09/15/2024 Patient: Marlena DIAZ Marija Willy Provider: Jessica Cunningham DPM :1960 A ge:64 Y S ex:Female Date:09/15/2024 Address:[address] [place] [address], [address] [place] [address] Pcp:Basim Huggins Subjective: * Chief Complaints: * T he patient reports that her right ankle is doing better, but it can still twinge and ache; especially at the end of the day * HPI: H PI: Follow Up Visit P celeste presents for follow up visit for right ankle pain. Patient states that the ankle has improved with the trilok brace paired with the Voltaren gel and exercises. She states that she is still having pain, especially on the top lateral side of the foot, but it has not gotten worse. Patient states she notices the pain more in the evening and when she walks without the brace on. , MA: kamila. * ROS: G eneral / Constitutional: Patient [...] History: * Hospitalization/Major Diagno stic Procedure: * Medications: T akingLatanoprost Levothyroxine Sodium Ambien [...] List reviewed and reconciled with the patient Objective: * Vitals: * Examination: C onstitutional: [...] ligament of right ankle, subsequent encounter - S93.440M (Primary) ? 2 . O ther enthesopathy of right foot and ankle - M77.51 3 . P eroneal tendinitis, right leg - M76.71 4 . P ain in right foot - M79.671 ? Plan: * Treatment: 2. O ther enthesopathy [...] injected to the right sinus tarsi joint 3. P eroneal tendinitis, right leg Notes: Peroneal Tendonitis: I discussed anti-inflammatory treatment options and various means of immobilization with the patient. I educated the patient on icing and stretching, supportive shoegear, and the use of orthotic devices and bracing. Voltaren Gel: Recommend that the patient obtain over the counter topical Voltaren Gel 1%. I educated the patient on its use. * Procedure Codes: 2 0605 DRAIN/INJECT, JOINT/BURSA, Modifiers: RT * Follow Up: 4 Weeks (Reason: Right ankle check. See how injection helped.) * Billing Information: * Visit Code: 30618 Office Visit, Est Pt., Level 3. Modifiers: 25 * Procedure Codes: 86746 DRAIN/INJECT, JOINT/BURSA. Modifiers: RT * TRUCTION AREA MANAGER Sign off status: Completed true * Provider: Jessica Cunningham DPM Date: 0 09/15/2024 Generated for Gayle Winslow/Dawson on: 0 11/27/2024 02:53 PM CDT History and Physical Notes * HPI (History of Present Illness) Category Sub-Category Detail Notes Category Not es HPI Follow Up Visit Patient presents for follow up visit for right ankle pain. Patient states that the ankle has improved with the trilok brace paired with the Voltaren gel and exercises. She states that she is still having pain, especially on the top lateral side of the foot, but it has not gotten worse. Patient states she notices the pain more in the evening and when she walks without the brace on. , MA: mca Examination Category Sub-Category Detail Notes Category Not [...]
== END 2024-11-27 14:06 | disposition home or self-care (01) ==
PROVIDERS: PCP Emergency Medicine; Visit Provider Emergency Medicine
DX: Z12.31 Encounter for screening mammogram for malignant neoplasm of breast (principal)
CPT/HCPCS: 77063; 77067

== ENCOUNTER 2025-04-03 14:30 | Outpatient (CLI) | payer MEDICARE, SELFPAY ==
--- NOTE | ~2025-04-03 | MR_ITS ---
EXAMINATION: MR ankle RT wo con DATE: 04/03/2025 15:02 INDICATION: Generalized right ankle pain and giving out post drain occurring one year prior TECHNIQUE: Magnetic resonance imaging (MRI) of the right ankle was performed without intravenous contrast. Sequences included sagittal, coronal, and axial proton-density weighted fast spin echo without and with fat saturation. COMPARISON: None. FINDINGS: Medial ankle ligaments: Deep and superficial deltoid ligaments as well as the spring ligament are normal. Lateral ankle ligaments: The anterior and posterior inferior tibiofibular ligaments are normal. The anterior talofibular, calcaneofibular and posterior talofibular ligaments are normal. Tendons: Achilles tendon is normal. The peroneus longus and brevis tendons are normal. The tibialis anterior and extensor hallucis longus and extensor digitorum longus tendons are normal. The tibialis posterior, flexor digitorum longus and flexor hallucis longus tendons are normal. Plantar fascia: Plantar fascia is normal. Bones/other: Bone alignment is normal. Small bone island at the talar dome. No fracture or pathologic marrow replacing process. Mild osteoarthritis at at a few of the tarsal metatarsal joints with suggestion of developing mild cystlike change at the distal cuboid along its articulation with the fifth metatarsal. Additional mild subarticular edema-like signal changes at the medial cuboid side of the calcaneocuboid articulation. Finally there is mild edema-like signal changes at the talus along the anterior facet of the subtalar joint and at the medial aspect of the talonavicular articulation. There is feathery muscular edema in the distal flexor hallux longus muscle belly. Fluid: Physiologic amount fluid in the joint spaces. No tenosynovitis or other abnormal fluid collections. IMPRESSION: 1. Mild feathery muscular edema in the distal flexor hallucis longus longus muscle belly which could be seen with low-grade strain or nonspecific focal myositis of indeterminate etiology. 2. Mild osteoarthritis with subarticular edema-like signal change at a few of the joints in the mid and hindfoot. Reviewed, dictated and finalized at location A. IMPRESSION: 1. Mild feathery muscular edema in the distal flexor hallucis longus longus mus nadya belly which could be seen with low-grade strain or nonspecific focal myosit is of indeterminate etiology. 2. Mild osteoarthritis with subarticular edema-like signal change at a few of t he joints in the mid and hindfoot.
== END 2025-04-03 14:31 | disposition home or self-care (01) ==
LOC: MICIMG 14:30
PROVIDERS: PCP Emergency Medicine; Visit Provider Orthopaedic Surgery
DX: S93.491A Sprain of other ligament of right ankle, initial encounter (principal); X58.XXXA Exposure to other specified factors, initial encounter; M19.071 Primary osteoarthritis, right ankle and foot
CPT/HCPCS: 73721